=== PATIENT | female | born 1945 | race Caucasian/White ===

== ENCOUNTER → 2020-08-24 15:45 | Outpatient (CLI) | payer MEDICARE, SELFPAY ==
--- NOTE | 2020-08-24 16:17 | DI.RAD.S_ITS ---
PROCEDURE: XR KUB INDICATIONS: kidney stones TECHNIQUE: One view of the abdomen acquired. COMPARISON: Outside Facility, RG, XR ABDOMEN 2V, 08/19/2020, 12:18. [facility], CR, XR INTRAOPERATIVE FLUORO UP TO 1 HOUR, 04/21/2019, 23:18. [facility], CT, CT CHEST WITH CONTRAST, 02/10/2019, 11:48. [facility], CT, CT KUB, 04/17/2019, 17:56. FINDINGS: Surgical changes and devices: None. Bowel: Bowel gas pattern is normal. Soft tissues: No suspicious abdominal calcifications. Visualized solid organ contours appear normal in size. Bones: No suspicious bony lesions. IMPRESSION: A left-sided proximal ureteral calculus was identified by CT KUB 04/17/19. This was associated with hydronephrosis on the left. A calculus along the expected course of the ureter on the left is not seen nor is a calculus identified superimposed on the expected area of the renal collecting system on the left. 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 Therefore, a definite left-sided ureteral stone or stone elsewhere is not found. Given the large size of the splenic artery pseudoaneurysm which contains flowing arterial blood on postcontrast comparison imaging surgical consultation may be warranted related to the risk factors of this finding if this has not yet been determined. Embolization through interventional radiology is a potential for treatment. Dictated by: Dylon Miranda M.D. on 08/24/2020 at 16:57 Approved by: Dylon Miranda M.D. on 08/24/2020 at 17:02
== END ==
PROVIDERS: PCP Family Medicine; Referring Provider Specialist; Visit Provider Specialist
DX: N20.0 Calculus of kidney (principal); I72.8 Aneurysm of other specified arteries; Z87.440 Personal history of urinary (tract) infections; Z87.442 Personal history of urinary calculi
CPT/HCPCS: 74018; 99214